=== PATIENT | female | born 1990 | race Caucasian/White ===

== ENCOUNTER 2018-03-13 10:50 | Emergency (ER) | payer OTHER ==
--- NOTE | 2018-03-13 12:45 | ER ---
Nurse's Notes [facility] Name: Javier Benites Age: 27 yrs Sex: Female : 1990 Arrival Date: 03/13/2018 Time: 10:59 Bed 15 Private MD: None, None Diagnosis: Acute upper respiratory infection, unspecified Presentation: 03/13 11:05 Presenting complaint: Patient states: cough, nasal congestion and ears popping for 3 tw2 days. Transition of care: patient was not received from another setting of care. Onset of symptoms was March 13, 2018. Risk Assessment: Do you want to hurt yourself or someone else? Patient reports no desire to harm self or others. Initial Sepsis Screen: Does the patient meet any 2 criteria? No. Patient's initial sepsis screen is negative. Does the patient have a suspected source of infection? No. Patient's initial sepsis screen is negative. Care prior to arrival: None. 11:05 Method Of Arrival: Ambulatory tw2 11:05 Acuity: NOREEN 4 tw2 Triage Assessment: 13:00 General: Behavior is calm. 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 tw2 Historical: - Allergies: 11:10 No Known Allergies; tw2 - Home Meds: 11:10 Adipex-P 37.5 mg oral cap 1 cap once daily [Active]; tw2 - PMHx: 11:10 Gout; tw2 - PSHx: 11:10 None; tw2 - Immunization history:: Adult Immunizations up to date. - Social history:: Smoking status: Patient uses tobacco products, smokes one-half pack cigarettes per day. - Ebola Screening: : Patient denies travel to an Ebola-affected area in the 21 days before illness onset. Screenin:08 Abuse screen: Denies threats or abuse. Nutritional screening: No deficits noted. tw2 Tuberculosis screening: No symptoms or risk factors identified. Fall Risk None identified. Assessment: 11:07 General: Appears in no apparent distress. Pain: Complains of pain in face. Neuro: Level tw2 of Consciousness is awake, alert, obeys commands, Oriented to person, place, time, situation. Cardiovascular: Denies chest pain, shortness of breath, Capillary refill Patient's skin is warm and dry. Respiratory: Reports cough that is non-productive, Airway is patent Respiratory effort is even, unlabored, Respiratory pattern is regular, symmetrical. GI: No signs and/or symptoms were reported involving the gastrointestinal system. GI: Patient currently denies nausea, vomiting. : No signs and/or symptoms were reported regarding the genitourinary system. EENT: Reports nasal congestion ears popping. Derm: No signs and/or symptoms reported regarding the dermatologic system. Musculoskeletal: No signs and/or symptoms reported regarding the musculoskeletal system. Range of motion: intact in all extremities. Vital Signs: 11:05 BP 114 / 102; Pulse 99; Resp 17; Temp 99(O); Pulse Ox 99% ; tw2 11:58 BP 111 / 89; Pulse 94; Resp 17; Pulse Ox 100% on R/A; tw2 ED Course: 10:59 Patient arrived in ED. mr 11:00 None, None is Private Physician. mr 11:04 Coreen Lazo, RN is Primary Nurse. tw2 11:05 Triage completed. tw2 11:06 Jose Metcalf MD is Attending Physician. 11:07 Arm band placed on. tw2 11:09 Call light in reach. Pulse ox on. NIBP on. tw2 12:07 Flu Sent. 5 12:08 Strep Sent. 5 12:08 Flu and/or RSV swab sent to lab. Strep swab sent to lab. [facility] 13:04 No provider procedures requiring assistance completed. Patient did not have IV access aj during this emergency room visit. Administered Medications: No medications were administered Outcome: 12:45 Discharge ordered by . 13:04 Discharged to home ambulatory, with family. 13:04 Condition: good 13:04 Discharge instructions given to patient, Instructed on discharge instructions, Demonstrated understanding of instructions, follow-up care. 13:05 Patient left the ED. aj Signatures: Yaritza Luke, RN Sharon Raymundo mr Coreen Lazo RN RN [facility] Sharon Dunbar Jose Basurto MD MD
--- NOTE | 2018-03-13 12:45 | EDPHYS ---
Physician Documentation [facility] Name: Javier Benites Age: 27 yrs Sex: Female : 1990 Arrival Date: 03/13/2018 Time: 10:59 Bed 15 Private MD: None, None ED Physician Jose Metcalf HPI: 03/13 12:27 This 27 yrs old Female presents to ER via Ambulatory with complaints of gs Cough, Congestion, Sore Throat. 12:27 Onset: The symptoms/episode began/occurred 3 day(s) ago. Severity of symptoms: At their gs worst the symptoms were moderate, in the emergency department the symptoms have improved, mildly. Modifying factors: the symptoms are aggravated by smoke. Associated signs and symptoms: Pertinent positives: fever, sore throat. The patient has experienced similar episodes in the past, a few times. The patient has not recently seen a physician. 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 tw2 Historical: - Allergies: 11:10 No Known Allergies; tw2 - Home Meds: 11:10 Adipex-P 37.5 mg oral cap 1 cap once daily [Active]; tw2 - PMHx: 11:10 Gout; tw2 - PSHx: 11:10 None; tw2 - Immunization history:: Adult Immunizations up to date. - Social history:: Smoking status: Patient uses tobacco products, smokes one-half pack cigarettes per day. - Ebola Screening: : Patient denies travel to an Ebola-affected area in the 21 days before illness onset. ROS: 12:27 All other systems are negative. gs Exam: 12:27 Head/Face: Normocephalic, atraumatic. Eyes: Pupils equal round and reactive to light, gs extra-ocular motions intact. Lids and lashes normal. Conjunctiva and sclera are non-icteric and not injected. Cornea within normal limits. Periorbital areas with no swelling, redness, or edema. Neck: Trachea midline, no thyromegaly or masses palpated, and no cervical lymphadenopathy. Supple, full range of motion without nuchal rigidity, or vertebral point tenderness. No Meningismus. Chest/axilla: Normal chest wall appearance and motion. Nontender with no deformity. No lesions are appreciated. Cardiovascular: Regular rate and rhythm with a normal S1 and S2. No gallops, murmurs, or rubs. Normal PMI, no JVD. No pulse deficits. Respiratory: Lungs have equal breath sounds bilaterally, clear to auscultation and percussion. No rales, rhonchi or wheezes noted. No increased work of breathing, no retractions or nasal flaring. Abdomen/GI: Soft, non-tender, with normal bowel sounds. No distension or tympany. No guarding or rebound. No evidence of tenderness throughout. Back: No spinal tenderness. No costovertebral tenderness. Full range of motion. Skin: Warm, dry with normal turgor. Normal color with no rashes, no lesions, and no evidence of cellulitis. MS/ Extremity: Pulses equal, no cyanosis. Neurovascular intact. Full, normal range of motion. Neuro: Awake and alert, GCS 15, oriented to person, place, time, and situation. Cranial nerves II-XII grossly intact. Motor strength 5/5 in all extremities. Sensory grossly intact. Cerebellar exam normal. Normal gait. 12:27 Constitutional: The patient appears alert, awake. 12:27 ENT: TM's: are normal, Nose: is normal, Posterior pharynx: swelling, is not appreciated, erythema, that is mild, Voice: is normal. Vital Signs: 11:05 BP 114 / 102; Pulse 99; Resp 17; Temp 99(O); Pulse Ox 99% ; tw2 11:58 BP 111 / 89; Pulse 94; Resp 17; Pulse Ox 100% on R/A; tw2 MDM: 11:34 Patient medically screened. 12:27 Differential Diagnosis: Bronchitis Influenza Upper Respiratory Infection. Data reviewed: vital signs, nurses notes. Response to treatment: the patient's symptoms have mildly improved after treatment, and as a result, I will discharge patient. 12:43 Counseling: I had a detailed discussion with the patient and/or guardian regarding: the historical points, exam findings, and any diagnostic results supporting the discharge/admit diagnosis, lab results, the need for outpatient follow up. 03/13 11:35 Order name: Strep; Complete Time: 12:43 03/13 11:35 Order name: Flu; Complete Time: 12:43 03/13 12:44 Order name: Throat Culture EDMS Administered Medications: No medications were administered Disposition: 03/13/18 12:45 Discharged to Home. Impression: Acute upper respiratory infection, unspecified. - Condition is Stable. - Discharge Instructions: Upper Respiratory Infection, Adult, Managing Your Hypertension. - Work release form, Medication Reconciliation Form, Thank You Letter, Antibiotic Education, Prescription Opioid Use form. - Follow up: Private Physician; When: 2 - 3 days; Reason: Re-evaluation by your physician. Signatures: Dispatcher [employer] Yaritza Vargas RN RN aj Coreen Lazo RN RN tw2 Jose Metcalf MD MD gs Corrections: (The following items were deleted from the chart) 13:05 12:45 03/13/2018 12:45 Discharged to Home. Impression: Acute upper respiratory aj infection, unspecified. Condition is Stable. Forms are Medication Reconciliation Form, Thank You Letter, Antibiotic Education, Prescription Opioid Use. Follow up: Private Physician; When: 2 - 3 days; Reason: Re-evaluation by your physician. gs
== END 2018-03-13 13:05 | disposition home or self-care (01) ==
LOC: ER 10:50
DX: J06.9 Acute upper respiratory infection, unspecified (principal); F17.210 Nicotine dependence, cigarettes, uncomplicated
CPT/HCPCS: 87070; 87081; 87804; 99283